=== PATIENT | female | born 2000 | race African-American/Black ===

== ENCOUNTER 2021-04-02 12:37 | Emergency (ER) | payer MEDICAID ==
[~2021-04-02] VITALS: Ht 167.6 cm; Wt 82.0 kg
[2021-04-02] MEDS ORDERED: SODIUM CHLORIDE 0.9% 1,000 ML IV ONE (13:00)
[2021-04-02 14:51] LABS: CHLORIDE 110 mEq/L (98-107)
[2021-04-02 14:54] LABS: ETHANOL BLOOD < 10 mg/dL
[2021-04-02 14:57] LABS: BASOPHILS % 0.7 % (0.0-2.0); EOSINOPHILS % 1.2 % (0.0-5.0); HEMATOCRIT. 36.7 % (36.0-48.0); HEMOGLOBIN. 11.9 g/dL (12.0-16.0); LYMPHOCYTES % 18.9 % (20.0-50.0); MEAN CORPUSCULAR HEMOGLOBIN 25.5 pg (28.0-32.0); MEAN CORPUSCULAR VOLUME 78.6 fL (81.0-99.0); MEAN PLATELET VOLUME 8.5 fl (7.4-10.4); NEUTROPHILS % 72.2 % (40.0-76.0); PLATELET 380 x1000/uL (130-400); RED BLOOD CELL COUNT 4.67 mill/uL (4.2-5.4); RED CELL DISTRIBUTION WIDTH 15.6 % (11.6-14.6)
[2021-04-02 14:59] LABS: HCG SCREEN NEGATIVE
[2021-04-02] MEDS ORDERED: LORAZEPAM 2MG/ML CPJ IM ONE (15:30)
[2021-04-02 17:45] LABS: CHLORIDE 110 mEq/L (98-107)
[2021-04-02 18:48] LABS: CLARITY URINE CLEAR (CLEAR); COLOR URINE DK YELLOW (YELLOW); KETONES URINE TRACE (NEGATIVE); LEUKOCYTE ESTERASE URINE NEGATIVE (NEGATIVE); NITRITE URINE NEGATIVE (NEGATIVE); OCCULT BLOOD URINE 2+ (NEGATIVE); PROTEIN URINE TRACE (NEGATIVE); SPECIFIC GRAVITY URINE 1.035 (1.005-1.030); UROBILINOGEN URINE 0.2 E.U./dL (0.2-1.0)
[2021-04-02 19:01] LABS: *AMPHETAMINES SCREEN URINE NEGATIVE (NEGATIVE); *BARBITURATES SCREEN URINE NEGATIVE (NEGATIVE); *BENZODIAZEPINES SCREEN URINE NEGATIVE (NEGATIVE); CANNABINOID URINE SCREEN NEGATIVE (NEGATIVE); OPIATES URINE SCREEN NEGATIVE (NEGATIVE); PHENCYCLIDINE URINE SCREEN NEGATIVE (NEGATIVE)
[2021-04-02 19:02] LABS: *COCAINE SCREEN URINE NEGATIVE (NEGATIVE)
[2021-04-02 19:03] LABS: METHADONE URINE SCREEN NEGATIVE (NEGATIVE)
[2021-04-02] MEDS ORDERED: LORAZEPAM 1MG TABLET PO ONE (20:15)
[2021-04-02] MEDS ORDERED: QUETIAPINE FUMARATE 50MG TABLET PO SCH (21:45)
[2021-04-03 14:28] VITALS: BP 106/62
== END 2021-04-03 18:36 | disposition home or self-care (01) ==
LOC: ER 12:53
DX: T39.312A Poisoning by propionic acid derivatives, intentional self-harm, initial encounter (principal); F33.1 Major depressive disorder, recurrent, moderate; R00.0 Tachycardia, unspecified; R03.0 Elevated blood-pressure reading, without diagnosis of hypertension; Z20.822 Contact with and (suspected) exposure to COVID-19; F99 Mental disorder, not otherwise specified; Z59.01 Sheltered homelessness; Y93.89 Activity, other specified; Y92.89 Other specified places as the place of occurrence of the external cause; Z75.1 Person awaiting admission to adequate facility elsewhere
CPT/HCPCS: 36415; 80053; 80305; 80307; 80320; 80329; 81003; 81025; 84703; 85025; 93005; 96360; 99285; C9803; J7030; U0003; U0005; Z7610; J2060; G0480